=== PATIENT | female | born 1995 | race Caucasian/White ===

== ENCOUNTER → 2022-09-05 17:02 | Outpatient (BNVA) | payer MEDICAID, SELFPAY | PROVIDERS: Family Provider Family Medicine; PCP Nurse Practitioner Family; Visit Provider Nurse Practitioner Family | DX: F32.A Depression, unspecified (principal); N92.6 Irregular menstruation, unspecified | CPT/HCPCS: 81025 ==

== ENCOUNTER → 2022-09-25 11:33 | Outpatient (BNVA) | payer MEDICAID, SELFPAY | PROVIDERS: Family Provider Family Medicine; PCP Nurse Practitioner Family; Visit Provider Nurse Practitioner Family | DX: N92.6 Irregular menstruation, unspecified (principal); F32.A Depression, unspecified; Z86.2 Personal history of diseases of the blood and blood-forming organs and certain disorders involving the immune mechanism | CPT/HCPCS: 80053; 82728; 83540; 83550; 84439; 84443; 84481; 85025 ==

== ENCOUNTER → 2022-10-22 10:10 | Outpatient (BNVA) | payer MEDICAID, SELFPAY | PROVIDERS: Family Provider Family Medicine; PCP Nurse Practitioner Family; Visit Provider Nurse Practitioner Family | DX: N92.6 Irregular menstruation, unspecified (principal); F32.A Depression, unspecified | CPT/HCPCS: 81025 ==

== ENCOUNTER → 2022-11-19 16:30 | Outpatient (BNVA) | payer MEDICAID, SELFPAY | PROVIDERS: Family Provider Family Medicine; PCP Nurse Practitioner Family; Visit Provider Nurse Practitioner Family | DX: Z20.828 Contact with and (suspected) exposure to other viral communicable diseases (principal); R51.9 Headache, unspecified | CPT/HCPCS: 86695; 86696 ==

== ENCOUNTER → 2023-12-20 12:45 | Outpatient (BNVA) | payer MEDICAID, SELFPAY | PROVIDERS: Family Provider Family Medicine; PCP Nurse Practitioner Family; Visit Provider Nurse Practitioner | DX: R00.2 Palpitations (principal) | CPT/HCPCS: 71046; 93005 ==

== ENCOUNTER 2023-12-29 19:45 | Emergency (ER) | payer MEDICAID, SELFPAY ==
[2023-12-29 19:52] VITALS: BP 112/69; PULSE 66; RESP 16; TEMP 36.7; O2SAT 98; BMI 33.4
--- NOTE | 2023-12-29 19:55 | CTR_ITS ---
PROCEDURE INFORMATION: Exam: CT Head Without Contrast Exam date and time: 12/29/2023 9:16 PM Age: 28 years old Clinical indication: Pain; Headache; Patient HX: C/O REAVES with dizziness; Additional info: Headache, dizziness TECHNIQUE: Imaging protocol: Computed tomography of the head without contrast. Radiation optimization: All CT scans at this facility use at least one of these dose optimization techniques: automated exposure control; mA and/or kV adjustment per patient size (includes targeted exams where dose is matched to clinical indication); or iterative reconstruction. COMPARISON: CT head wo con* [id number] 07/24/2017 4:45 AM RADIATION DOSE METRICS: Total DLP (mGy-cm): 1032.38 FINDINGS: Brain: Normal. No hemorrhage. Unremarkable white matter. No mass effect. Cerebral ventricles: No ventriculomegaly. Paranasal sinuses: Visualized sinuses are unremarkable. No fluid levels. Mastoid air cells: Visualized mastoid air cells are well aerated. Bones: Unremarkable. No acute fracture. Soft tissues: Unremarkable. CT/CT head wo con* [id number] IMPRESSION: No acute intracranial abnormality.
--- NOTE | 2023-12-29 19:57 | W.ED.DIZZY ---
HPI - Dizziness General: Chief Complaint: Dizziness Stated Complaint: DIZZY/WEAK Time Seen by Provider: 12/29/23 19:49 History of Present Illness: HPI Narrative: Patient comes in today for symptoms intermittent for last 2-1/2 months. Patient reports that she has had episodes of weakness with headache and feeling of passing out. Patient has been evaluated by her primary care for EKG, chest x-ray, and blood work. Most of come back unremarkable except for some mild elevation in her hemoglobin. Patient does take fluoxetine and hydroxyzine for depression with anxiety. Patient also uses nicotine and occasional THC. Patient denies use of alcohol and methamphetamines. EMS reported no significant abnormalities except some irregularity in pulse rate which most likely is sinus arrhythmia. Related Data Previous Rx's Medication Instructions Recorded hydroxyzine HCl 50 mg tablet See Rx Instructions .Route 03/22/23 .COMPLEX #30 tabs ferrous sulfate 325 mg (65 mg See Rx Instructions PO .COMPLEX 05/07/23 iron) tablet #90 tabs fluoxetine 40 mg capsule (Prozac) 40 mg PO DAILY #30 caps 09/12/23 Allergies Allergy/AdvReac Type Severity Reaction Status Date / Time codeine Allergy ADR-Itching Verified 12/23/23 11:29 promethazine Allergy doesn't Verified 08/16/23 14:21 feel right Review of Systems General: Reports: 10 or more systems reviewed and unremarkable except in HPI and below PFSH ED PFSH: Medical History (Updated 12/29/23 @ 21:16 by CHRISTIAN Woodard) Psychiatric care Family History (Updated 12/18/22 @ 09:55 by Radha Matos LPN) Mother Hypertension Stroke Father Diabetes Grandmother Dementia Denies family history of Colon cancer Ovarian cancer Prostate cancer Heart disease Hyperlipidemia Uterine cancer Thyroid disease Physical Exam Const: COMMON NORMALS: patient oriented x3 HENMT: COMMON NORMALS: normocephalic HEAD & SCALP: normocephalic Neck/C-Spine: COMMON NORMALS: full ROM Resp: COMMON NORMALS: normal respiratory effort Cardio: COMMON NORMALS: regular rate and regular rhythm RATE: regular rate RHYTHM: regular rhythm GI: COMMON NORMALS: Soft to palpation and non-tender PALPATION: Yes Soft to palpation : COMMON NORMALS: Yes no CVA tenderness BLADDER/KIDNEY EXAM: Yes no CVA tenderness Back/Pelvis: COMMON NORMALS: no CVA tenderness and thoracic and lumbar spine normal to inspection Extremity: COMMON NORMALS: normal to inspection Neuro: COMMON NORMALS: patient oriented x3 Skin: COMMON NORMALS: turgor normal GENERAL SKIN EXAM: turgor normal Course Vital Signs: Vital signs: Vital Signs Temperature 98.0 F 12/29/23 19:52 Pulse Rate 60 12/29/23 21:07 Respiratory Rate 18 12/29/23 21:07 Blood Pressure 111/73 12/29/23 21:07 Pulse Oximetry 98 12/29/23 21:07 Oxygen Delivery Me thod Room Air 12/29/23 19:52 MDM - Dizziness Medical Decision Making 28-year-old female comes in today with intermittent episodes of dizziness, headache, and weakness for the last 2 to 3 months. On exam patient appears nontoxic. Respirations are even. Lungs are clear per patient. No edema is noted in extremities. Vital signs are normal. Differential diagnosis includes but not limited to MDD, anxiety, uncontrolled hypertension, arrhythmia, PVCs, dehydration, , anemia. CBC CMP was unremarkable. CT of the head showed no significant abnormalities. Patient was treated for headache with Toradol and Zofran with good results. Patient EKGs did show some episodes of bradycardia getting down into the low 40s. Believe this may be the reasoning behind why patient is feeling poorly at times. Patient is to be following up with a post acute care registered nurse but we will go ahead and place a referral to see if they could move up her appointment. Patient was agreeable with plan. Patient was stable and discharged home. Lab Data 12/29/23 20:05 12/29/23 20:[address] 12/29/23 19:55 IMPRESSION: No acute intracranial abnormality. Laboratory Results WBC 8.82 10^3/uL (3.29-11.43) 12/29/23 20:05 RBC 4.70 10^6/uL (3.85-5.65) 12/29/23 20:05 Hgb 13.40 g/dL (11.27-16.99) 12/29/23 20:05 Hct 40.3 % (36-47) 12/29/23 20:05 MCV 85.7 fl (85-98) 12/29/23 20:05 MCH 28.5 pg (27-33) 12/29/23 20:05 MCHC 33.3 g/dL (30-55) 12/29/23 20:05 RDW 13.1 % (12.1-15.1) 12/29/23 20:05 Plt Count 279 10^3/cmm (157-399) 12/29/23 20:05 MPV 9.6 fL (7.4-10.4) 12/29/23 20:05 Neut % (Auto) 65.2 % 12/29/23 20:05 Lymph % (Auto) 24.3 % 12/29/23 20:05 [place] % (Auto) 6.6 % 12/29/23 20:05 Eos % (Auto) 3.3 % 12/29/23 20:05 Baso % (Auto) 0.5 % 12/29/23 20:05 Neut # (Auto) 5.76 10^3/uL (1.8-7.7) 12/29/23 20:05 Lymph # (Auto) 2.1 10^3/uL (0.8-4.8) 12/29/23 20:05 [place] # (Auto) 0.6 10^3/uL (0.2-0.9) 12/29/23 20:05 Eos # (Auto) 0.3 10^3/uL (0.0-0.8) 12/29/23 20:05 Baso # (Auto) 0.0 10^3/uL (0.0-0.1) 12/29/23 20:05 Nucleated RBC % (auto) 0 % 12/29/23 20:05 Nucleated RBCs # 0.0 /100WBC 12/29/23 20:05 Sodium 137 mmol/L (136-145) 12/29/23 20:05 Potassium 3.8 mmol/L (3.5-5.1) 12/29/23 20:05 Chloride 102 mmol/L (98-107) 12/29/23 20:05 Carbon Dioxide 24 mmol/L (22-29) 12/29/23 20:05 Anion Gap 14.8 (5-19) 12/29/23 20:05 BUN 9 mg/dL (6-20) 12/29/23 20:05 Creatinine 0.7 mg/dL (0.5-0.9) 12/29/23 20:05 GFR Calculation 100.4 mL/min (90-130) 12/29/23 20:05 Glucose 121 mg/dL (65-115) H 12/29/23 20:05 Calculated Osmolality 284 mOsm/kg (285-295) L 12/29/23 20:05 Calcium 8.6 mg/dL (8.5-10.5) 12/29/23 20:05 Total Bilirubin 0.2 mg/dL (0.15-1.2) 12/29/23 20:05 AST 13 U/L (0-32) 12/29/23 20:05 ALT 12 U/L (0-33) 12/29/23 20:05 Alkaline Phosphatase 55 U/L (35-105) 12/29/23 20:05 Troponin T Baseline < 6 ng/L (0-10) 12/29/23 20:05 Total Protein 6.6 g/dL (6.6-8.7) 12/29/23 20:05 Albumin 4.0 g/dL (3.5-5.2) 12/29/23 20:05 Globulin 2.6 g/dL (1.3-4.6) 12/29/23 20:05 HCG, Qual Negative (Negative) 12/29/23 20:05 Urine Color Yellow (Yellow) 12/29/23 21:00 Urine Appearance Clear (CLEAR) 12/29/23 21:00 Urine pH 5.5 (5-7) 12/29/23 21:00 Ur Specific [place] 1.023 (1.005-1.030) 12/29/23 21:00 Urine Protein Negative (Negative) 12/29/23 21:00 Urine Glucose (UA) Negative (Normal) 12/29/23 21:00 Urine Ketones Negative (Negative) 12/29/23 21:00 Urine Blood Negative (Negative) 12/29/23 21:00 Urine Nitrate Negative (Negative) 12/29/23 21:00 Urine Bilirubin Negative (Negative) 12/29/23 21:00 Urine Urobilinogen 1.0 mg/dL (Negative) 12/29/23 21:00 Ur Leukocyte Esterase Negative (Negative) 12/29/23 21:00 Urine RBC 0-2 /hpf (0-2) 12/29/23 21:00 Urine WBC 6-10 /hpf (0-5) 12/29/23 21:00 Ur Squamous Epith Cells 6-10 /hpf (0-5) 12/29/23 21:00 Amorphous Sediment Not Reportable 12/29/23 21:00 Urine Bacteria Trace /hpf (NONE) 12/29/23 21:00 Hyaline Casts 0.81 /lpf 12/29/23 21:00 All radiology interpretation(s) finalized by discharge Discharge Plan Discharge Patient Disposition: Home Clinical Impression: Bradycardia Condition: Stable Prescriptions: No Action hydroxyzine HCl 50 mg tablet See Rx Instructions .ROUTE .COMPLEX Qty: 30 0RF Dose Instruction: TAKE ONE TABLET BY MOUTH EVERY 6 HOURS NEEDED FOR ANXIETY Rx Instructions: TAKE ONE TABLET BY MOUTH EVERY 6 HOURS NEEDED FOR ANXIETY ferrous sulfate 325 mg (65 mg iron) tablet See Rx Instructions PO .COMPLEX Qty: 90 0RF Rx Instructions: take one tablet on saturday, wednesdays, and fridays. orally; fluoxetine [Prozac] 40 mg capsule 40 mg PO DAILY Qty: 30 2RF Discharge Orders: Discharge ED (Routine); Ordered 12/29/23 Ordered By: Keith Hernández Referrals: Gin Ryder DO [Family Provider] - Yesenia Lopez NP [Primary Care Provider] - Discharge Diet: Usual diet Discharge Activity: Increase activity as tolerated Patient Instructions: Bradycardia (ED) Activity Restrictions/Additional Instructions: Home and rest. Drink plenty water and fluids. Keep appointment with post acute care registered nurse. You may want to call and see if they can move that up any earlier. It seems like your heart does have episodes where the rate becomes low. This may be the cause for some of the symptoms you have been having. Follow-up with primary care as needed. Return to ED for worsening symptoms such as inability to hold fluids down, severe chest pain, or shortness of breath. Coding Level of Care Code ED Automatic Beading Lathe Operator for Rajesh Dong
[2023-12-29 20:07] VITALS: BP 106/49; PULSE 58; RESP 16; O2SAT 98
[2023-12-29 20:19] LABS: Basophils % 0.5 %; Eosinophils # 0.3 10^3/uL (0.0-0.8); Eosinophils % 3.3 %; Hematocrit 40.3 % (36-47); Lymphocytes # 2.1 10^3/uL (0.8-4.8); Lymphocytes % 24.3 %; Mean Corpuscular HGB Conc 33.3 g/dL (30-55); Mean Corpuscular Hemoglobin 28.5 pg (27-33); Mean Corpuscular Volume 85.7 fl (85-98); Mean Platelet Volume 9.6 fL (7.4-10.4); Monocytes # 0.6 10^3/uL (0.2-0.9); Monocytes % 6.6 %; Neutrophils # 5.76 10^3/uL (1.8-7.7); Neutrophils % 65.2 %; Nucleated Red Blood Cells % 0 %; Platelet Count 279 10^3/cmm (157-399); Red Cell Distribution Width 13.1 % (12.1-15.1); White Blood Count 8.82 10^3/uL (3.29-11.43)
[2023-12-29 20:27] LABS: HCG, Serum Qual Negative (Negative)
[2023-12-29 20:37] LABS: Troponin(5th) Baseline < 6 ng/L (0-10)
[2023-12-29 20:39] LABS: Alanine Aminotransferase 12 U/L (0-33); Alkaline Phosphatase 55 U/L (35-105); Anion Gap 14.8 (5-19); Aspartate Amino Transferase 13 U/L (0-32); Blood Urea Nitrogen 9 mg/dL (6-20); Calcium 8.6 mg/dL (8.5-10.5); Carbon Dioxide 24 mmol/L (22-29); Chloride 102 mmol/L (98-107); Creatinine Clr Calc Pharmacy 134.6773; Globulin 2.6 g/dL (1.3-4.6); Glomerular Filtration Rate 100.4 mL/min (90-130); Glucose 121 mg/dL (65-115); Osmolality Calculated 284 mOsm/kg (285-295); Potassium 3.8 mmol/L (3.5-5.1); Sodium 137 mmol/L (136-145); Total Bilirubin 0.2 mg/dL (0.15-1.2); Total Protein 6.6 g/dL (6.6-8.7)
[2023-12-29] MEDS: ondansetron 2 mg/ML SDV 2 mL 4 MG IVP (20:43)
[2023-12-29] MEDS: ketorolac 30 mg/mL INJ 15 MG IVP (20:43)
[2023-12-29 21:05] LABS: Bilirubin Urine Negative (Negative); Blood Urine Negative (Negative); Glucose Urine UA Negative (Normal); Ketones Urine Negative (Negative); Leukocyte Esterase Urine Negative (Negative); Nitrate Urine Negative (Negative); Protein Urine Negative (Negative); Specific Gravity, Urine 1.023 (1.005-1.030); Urine Appearance Clear (CLEAR); Urine Color Yellow (Yellow); pH Urine 5.5 (5-7)
[2023-12-29 21:06] VITALS: BP 106/49; BP 115/79; BP 115/82; PULSE 48; PULSE 68; PULSE 78
[2023-12-29 21:07] VITALS: BP 111/73; PULSE 60; RESP 18; O2SAT 98
[2023-12-29 21:10] LABS: Add Urine Microscopic? YES; Bacteria Urine Trace /hpf; Hyaline Casts Urine 0.81 /lpf; RBC Urine 0-2 /hpf (0-2)
--- NOTE | 2023-12-29 21:39 | ECG_ITS ---
[facility] Date: 2023-12-29 Pat Name: Ivanna Wynne Department: Room: Gender: Female [place]: : 1995 Requested By: Keith Mclaughlin Order Number: [id number] Mathew MD: Gavin Cruz M.D. Measurements Intervals [place] Rate: 50 P: 41 MA: 136 QRS: 13 QRSD: 89 T: 5 QT: 419 QTc: 385 Interpretive Statements SINUS BRADYCARDIA MODERATE T-WAVE ABNORMALITY, CONSIDER ANTERIOR ISCHEMIA [-0.1+ mV T-WAVE IN V3/V4] Compared to ECG 08/31/2017 16:14:50 Possible ischemia now present Sinus rhythm no longer present Short MA interval no longer present T-wave abnormality still present Electronically Signed On 01-02-2024 21:24:14 COMPUTER SYSTEMS ADMINISTRATOR by Gavin Cruz M.D. [email or web address]
[2023-12-29 21:55] VITALS: BP 104/55; PULSE 55; O2SAT 97
--- NOTE | 2023-12-30 09:21 | DCPLANNER ---
messaged heart care for er f/u
== END 2023-12-29 21:57 | disposition home or self-care (01) ==
PROVIDERS: Emergency Provider Nurse Practitioner Family; PCP Nurse Practitioner Family
DX: R00.1 Bradycardia, unspecified (principal)
CPT/HCPCS: 70450; 80053; 81001; 84484; 84703; 85025; 93005; 96374; 96375; 99285; J1885; J2405

== ENCOUNTER → 2023-12-31 14:23 | Outpatient (BNVA) | payer MEDICAID, SELFPAY | PROVIDERS: PCP Nurse Practitioner Family; Referring Provider Nurse Practitioner Family; Visit Provider Internal Medicine Cardiovascular Disease | DX: R00.1 Bradycardia, unspecified (principal); R06.09 Other forms of dyspnea; R00.2 Palpitations; R55 Syncope and collapse; R60.0 Localized edema; Z86.79 Personal history of other diseases of the circulatory system; F33.2 Major depressive disorder, recurrent severe without psychotic features | CPT/HCPCS: 99204 ==

== ENCOUNTER 2024-01-27 09:56 | Outpatient (CLI) | payer MEDICAID, SELFPAY ==
--- NOTE | 2024-01-27 10:00 | USCV_ITS ---
Ivanna Wynne Age: 28 Gender: F : 1995 Exam Date: 01/27/2024 10:03 Ordering Phys: Gavin Cruz MD ([email or web address]) Technologist: CT Exam Location: [facility] [place] Indication: syncope BP: 100 / 78 HR: 48 Rhythm: Sinus Technical Quality: Adequate MEASUREMENTS (Male / Female) Normal Values 2D ECHO LVOT Diameter 2.1 cm LV Ejection Fraction MOD 4C 60.7 % LV Ejection Fraction MOD 2C 69.0 % LV Ejection Fraction 2C AL 70.2 % LA Diameter 3.1 cm RA Systolic Volume 4C AL 45.8 ml RA Systolic Volume 4C MOD 44.6 ml LA Sys Volume AL 66.1 cm cubed LA Sys Volume Index AL 31.5 cm cubed/m squared Aorta at Sinotubular Diameter 2.3 cm IVC Diameter 2.3 cm M-MODE LA Ao Ratio MM 1.5 AV Cusp Separation MM 2.0 cm DOPPLER AV Peak Velocity 146.0 cm/s LVOT Peak Velocity 115.0 cm/s AV Area Cont Eq vti 3.2 cm squared AV Area Cont Eq pk 2.8 cm squared MV Peak Velocity 93.0 cm/s MV Area PHT 3.6 cm squared Mitral E to A Ratio 1.5 TR Peak Velocity 133.0 cm/s TR Peak Gradient 7.1 mmHg TV Peak E Velocity 82.0 cm/s PV Peak Velocity 83.5 cm/s FINDINGS Left Ventricle Normal left ventricular size and systolic function, EF 65%. No regional wall motion abnormalities. Right Ventricle The right ventricle is normal in size and function. Echodensity near the RV apex suggesting prominent trabeculations Right Atrium The right atrium is normal in size. Left Atrium Small atrial septal aneurysm.mildly increased left atrial size. Mitral Valve No gross abnormalities noted.mild mitral valve regurgitation, appears to be eccentric Aortic Valve No gross abnormalities noted Tricuspid Valve Trace tricuspid valve regurgitation. Estimated pulmonary artery peak systolic pressure within normal limits Pulmonic Valve No gross abnormalities noted Pericardium Normal pericardium without effusion. Aorta Normal aortic annulus size. IVC Normal inferior vena cava. CONCLUSIONS Normal left ventricular size and systolic function, EF 65%. No regional wall motion abnormalities. The right ventricle is normal in size and function. Small atrial septal aneurysm, bulging to the right side. Mildly increased left atrial size. Mild, eccentric mitral valve regurgitation. Trace tricuspid valve regurgitation. Estimated pulmonary artery peak systolic pressure within normal limits There is no pericardial effusion. There are no intracardiac masses. Compared to the study from 01/04/2016, there may not be a significant change Dr Gavin Cruz MD [facility] (Electronically Signed) Final Date: 28 January 2024 09:22 S
== END 2024-01-27 09:57 | disposition home or self-care (01) ==
LOC: RAD 09:56
PROVIDERS: PCP Nurse Practitioner Family; Visit Provider Internal Medicine Cardiovascular Disease
DX: Q21.10 Atrial septal defect, unspecified (principal); R06.09 Other forms of dyspnea
CPT/HCPCS: 93306

== ENCOUNTER → 2024-03-05 14:21 | Outpatient (BNVA) | payer MEDICAID, SELFPAY | PROVIDERS: PCP Nurse Practitioner Family; Visit Provider Nurse Practitioner Family | DX: R55 Syncope and collapse (principal); R00.1 Bradycardia, unspecified; R60.0 Localized edema; Z86.79 Personal history of other diseases of the circulatory system; F33.2 Major depressive disorder, recurrent severe without psychotic features | CPT/HCPCS: 99213 ==

== ENCOUNTER → 2024-07-21 10:31 | Outpatient (BNVA) | payer MEDICAID, SELFPAY | PROVIDERS: PCP Family Medicine; Visit Provider Nurse Practitioner Family | DX: R06.02 Shortness of breath (principal); R06.2 Wheezing; R05.9 Cough, unspecified | CPT/HCPCS: 71046 ==